=== PATIENT | female | born 2000 | race Two or more races ===

== ENCOUNTER 2024-01-30 03:37 | Emergency (ER) | payer OTHER ==
[~2024-01-30] VITALS: Ht 147.3 cm; Wt 41.7 kg
[2024-01-30] MEDS ORDERED: KETOROLAC TROMETHAMINE 60 MG VIAL IM STA (04:52)
[2024-01-30] MEDS ORDERED: KETO10TA2 PO (06:25)
== END 2024-01-30 06:33 ==
LOC: ER 03:39
DX: R00.2 Palpitations (principal); R07.89 Other chest pain

== ENCOUNTER 2025-02-09 13:50 | Emergency (ER) | payer OTHER ==
[~2025-02-09] VITALS: Ht 147.3 cm; Wt 38.1 kg
[~2025-02-09 13:50] MED LIST: KETO10TA2 PO
[2025-02-09] MEDS ORDERED: CETIRIZINE HCL 5 MG/5 ML ML PO ONE (16:30)
[2025-02-09] MEDS ORDERED: BENZONATATE 100 MG CAPSULE PO ONE (16:30)
[2025-02-09] MEDS ORDERED: ACETAMINOPHEN 500 MG GEL..CAP PO ONE ×2 (16:30→16:47)
[2025-02-09] MEDS ORDERED: CETIRIZINE HCL 5MG/5ML BLIST.PACK PO ONE (16:47)
[2025-02-09 17:20] LABS: BASO % 0.2 % (0.1-1.2); EOS # 0.00 (0.04-0.54); EOS % 0.0 % (0.7-7.0); LYMPH # 0.56 (1.18-3.74); LYMPH % 11.7 % (19.3-53.1); MEAN PLATELET VOLUME 9.60 fl (9.4-12.4); MONO # 0.32 (0.24-0.82); MONO % 6.7 % (4.7-12.5); NEUT # 3.90 (1.56-6.13); NEUT % 81.2 % (34.0-71.1); RED CELL DISTRIBUTION WIDTH 12.5 % (11.6-14.4)
[2025-02-09 17:40] LABS: COVID-19 AG NEGATIVE (NEGATIVE)
[2025-02-09] MEDS ORDERED: OSELTAMIVIR PHOSPHATE 75 MG CAPSULE PO ONE ×2 (18:00→18:06)
[2025-02-09] MEDS ORDERED: ZYRTEC10 MG PO (18:09)
[2025-02-09] MEDS ORDERED: BENZONATATE200 M1 PO (18:09)
[2025-02-09] MEDS ORDERED: OSEL75CA PO (18:09)
== END 2025-02-09 19:02 ==
LOC: ER 13:50
PROVIDERS: General Practice
DX: J10.1 Influenza due to other identified influenza virus with other respiratory manifestations (principal); R50.9 Fever, unspecified; Z20.822 Contact with and (suspected) exposure to COVID-19